=== PATIENT | male | born 1985 | race African-American/Black ===

== ENCOUNTER 2023-06-12 15:45 | Emergency (ER) | payer BC, MEDICAID ==
[~2023-06-12] VITALS: Ht 188 cm; Wt 100.0 kg
[2023-06-12 15:57] VITALS: O2SAT 98
[2023-06-12 16:51] LABS: BASOPHILS % 0.4 % (0.0-2.0); EOSINOPHILS % 1.6 % (0.0-5.0); HEMATOCRIT. 37.7 % (42.0-52.0); HEMOGLOBIN. 13.4 g/dL (14.0-18.0); LYMPHOCYTES % 10.1 % (20.0-50.0); MEAN CORPUSCULAR HEMOGLOBIN 29.6 pg (28.0-32.0); MEAN CORPUSCULAR VOLUME 83.4 fL (80.0-94.0); MEAN PLATELET VOLUME 7.5 fl (7.4-10.4); MONOCYTES % 11.9 % (2.0-8.0); PLATELET 194 x1000/uL (130-400); RED BLOOD CELL COUNT 4.52 mill/uL (4.7-6.1); RED CELL DISTRIBUTION WIDTH 13.2 % (11.6-14.6)
[2023-06-12 17:00] LABS: PARTIAL THROMBOPLASTIN TIME 29.6 sec (23.4-31.0); PROTHROMBIN TIME 10.8 sec (9.6-11.0)
[2023-06-12 17:14] LABS: CHLORIDE 107 mEq/L (98-107)
[2023-06-12 20:00] VITALS: BP 156/102; PULSE 95; RESP 18; TEMP 98.8
== END 2023-06-12 20:18 | disposition home or self-care (01) ==
LOC: ER 15:45
DX: R07.89 Other chest pain (principal); F17.200 Nicotine dependence, unspecified, uncomplicated
CPT/HCPCS: 36415; 71045; 80053; 83880; 84484; 85025; 93005; 99285